=== PATIENT | male | born 2005 | race Caucasian/White ===

== ENCOUNTER 2024-11-17 15:06 | Outpatient (RCR) | payer MEDICAID, SELFPAY ==
--- NOTE | 2024-11-17 15:21 | PT.OIERPT ---
PT OP Initial Eval Patient Information Outpatient Physical Therapy Treatment Date: 11/17/24 Visit Reasons: LEFT ACHILLES TENDON ANKLE Start of Care: 11/17/24 Smoking Status Smoking Status: Never smoker
== END 2024-12-01 23:59 | disposition home or self-care (01) ==
LOC: CPTX 15:06
PROVIDERS: PCP Physician Assistant; Referring Provider Physician Assistant; Visit Provider Physician Assistant
DX: Z53.8 Procedure and treatment not carried out for other reasons (principal)

== ENCOUNTER 2025-04-06 18:51 | Emergency (ER) | payer MEDICAID, SELFPAY ==
[2025-04-06 18:59] VITALS: BP 136/75; PULSE 86; RESP 19; TEMP 36.7; O2SAT 97; BMI 19.5
[2025-04-06 19:03] VITALS: PULSE 72; RESP 18; O2SAT 99
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
[2025-04-06 20:17] LABS: Basophils # (Auto) 0.0 Thou/mm3 (0.0-0.2); Basophils % (Auto) 0 % (0-2.5); Eosinophils # (Auto) 0.0 Thou/mm3 (0.0-0.5); Eosinophils % (Auto) 0 % (0-10); Hematocrit 42.4 % (41.0-53.0); Hemoglobin 15.2 g/dL (13.5-16.0); Immature Granulocytes Auto 0.03 Thou/mm3 (0.00-0.00); Lymphocytes # (Auto) 1.7 Thou/mm3 (1.0-4.8); Lymphocytes % (Auto) 16 % (10-50); Mean Corpuscular HGB Conc 35.8 g/dl (31.0-37.0); Mean Corpuscular Hemoglobin 31.9 pg (25.0-35.0); Mean Corpuscular Volume 89 fL (80-100); Monocytes # (Auto) 0.8 Thou/mm3 (0.0-0.8); Monocytes % (Auto) 8 % (0-12); Neutrophils # (Auto) 7.9 Thou/mm3 (1.8-7.7); Neutrophils % (Auto) 76 % (37-80); Nucleated Red Blood Cell # 0.00 Thou/mm3 (0.00-0.00); Nucleated Red Blood Cell % 0 /100 WBC (0); Platelet Count 264 Thou/mm3 (140-440); RDW Standard Deviation 42.0 fL (35.1-43.9); Red Blood Count 4.76 Miln/mm3 (4.50-5.90); White Blood Count 10.5 Thou/mm3 (3.8-10.6)
[2025-04-06 20:51] LABS: Acetaminophen < 2.0 mcg/mL (10.0-20.0); Alcohol, Blood Medical < 3.0 mg/dL (0-10.0); Anion Gap 11 (7-16); BUN/Creatinine Ratio 11 Ratio (12-20); Blood Urea Nitrogen 11 mg/dL (9-23); Calcium 10.7 mg/dL (8.3-10.6); Carbon Dioxide 27.2 mMol/L (20.0-31.0); Chloride 105 mMol/L (98-107); Creatinine (Component) 1.0 mg/dL (0.6-1.3); Estimated Creatinine Clearance 105.0 mL/min (>60); Glucose 101 mg/dL (74-106); Osmolality,Calculated 284 (275-295); Potassium 3.6 mMol/L (3.4-5.1); Salicylate < 3.0 mg/dL; Sodium 143 mMol/L (136-145); eGFR > 60 See Note
[2025-04-06 22:44] LABS: Collection Type, Urine Clean Catch
[2025-04-06 22:54] LABS: Amphetamine/Methamp Scrn,U Negative (Negative); Barbiturate Screen,Urine Negative (Negative); Benzodiazepines Screen,Urine Negative (Negative); Benzoylecgonine Screen, Ur Negative (Negative); Fentanyl Screen,Urine Negative (Negative); Opiate Screen,Urine Negative (Negative); THC Screen,Urine Positive (Negative)
[2025-04-06 23:04] LABS: Bilirubin,Urine Negative (Negative); Blood,Urine Negative (Negative); Clarity,Urine Clear (Clear/Hazy); Color,Urine Yellow (Lt Yel-Yel); Glucose, Urine Negative (Negative); Ketones,Urine 1+ (Negative); Leukocyte Esterase,Urine Negative (Negative); Nitrite,Urine Negative (Negative); PH,Urine 6.5 (5.0-7.0); Protein,Urine Trace (Neg - Trace); RBC,Urine 2 /hpf (0-3); Specific Gravity,Urine 1.029 (1.001-1.035); Squamous Epithelial Cell,Urine < 1 /hpf (0-5); Urobilinogen,Urine 2.0 mg/dL (0.0-1.0); WBC,Urine 1 /hpf (0-5)
--- NOTE | 2025-04-07 00:30 | PD.EDADDENDU ---
Emergency Room Addendum Addendum Narrative: I took over the care from Sneha Thompson NP at _11 PM_ on _04/06/2025_.? See previous notes for complete H & P and ED course.?? I reviewed all diagnostic test results. Patient is on 5150 hold. Entered order for evaluation by our ED resident care manager. At 6 AM on 04/28, the care of the patient was transferred to Dr. Sanchez. During my watch, the patient remained stable. Frandy Aguirre MD
--- NOTE | 2025-04-07 04:35 | PC.NURSE ---
WE HAD DOWN TIME FROM [id number].
[2025-04-07 06:06] VITALS: BP 126/75; PULSE 65; RESP 19; TEMP 36.5; O2SAT 99
[2025-04-07 07:00] VITALS: BP 131/80; PULSE 50; RESP 18; TEMP 36.4; O2SAT 98
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
== END 2025-04-07 10:44 | disposition home or self-care (01) ==
PROVIDERS: Nurse Practitioner Family; Emergency Provider Emergency Medicine
DX: R45.851 Suicidal ideations (principal)
CPT/HCPCS: 36415; 80048; 80307; 80320; 80329; 81001; 85025; 96127; 99283; G0480